=== PATIENT | male | born 1975 | race Two or more races ===

== ENCOUNTER 2016-05-12 17:32 | Emergency (ER) | payer OTHER ==
[2016-05-12 17:47] VITALS: PULSE 70; TEMP 98.9; BMI 29.9
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
[2016-05-12 20:08] VITALS: BP 123/86
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
== END 2016-05-12 20:28 | disposition home or self-care (01) ==
LOC: ED 17:32 → EDMC 20:28
DX: S16.1XXA Strain of muscle, fascia and tendon at neck level, initial encounter (principal); V49.50XA Passenger injured in collision with unspecified motor vehicles in traffic accident, initial encounter; Y93.9 Activity, unspecified; Y92.410 Unspecified street and highway as the place of occurrence of the external cause
CPT/HCPCS: 72050; 99283